=== PATIENT | female | born 1990 | race Hispanic/Latino ===

== ENCOUNTER 2019-01-24 16:42 | Outpatient (CLI) | payer OTHER ==
[2019-01-24 17:32] VITALS: BP 134/64
[2019-01-24] MEDS ORDERED: LACTATED RINGERS 1,000 ML IV SCH (18:00)
--- NOTE | 2019-01-24 20:21 | Ultrasound Report ---
PROCEDURE: US OB LIMITED TECHNIQUE: Ultrasound obstetrical transabdominal limited HISTORY: EDUARDO COMPARISONS: FINDINGS: Single live intrauterine gestation present in cephalic presentation. Cardiac activity present. And 27 bpm Amniotic fluid index is 12.1 cm IMPRESSION: Amniotic fluid index within normal limits for 0.7 cm Single live intrauterine gestation in cephalic presentation. This document is electronically signed by Rudi Romero MD., January 24 2019 08:19:00 PM ET
== END 2019-01-24 20:30 | disposition home or self-care (01) ==
LOC: TRG 16:42
PROVIDERS: ATTEND Obstetrics & Gynecology
DX: O47.1 False labor at or after 37 completed weeks of gestation (principal); Z3A.38 38 weeks gestation of pregnancy
CPT/HCPCS: 59025; 76815; 82962

== ENCOUNTER 2019-01-28 04:58 | Outpatient (CLI) | payer OTHER ==
[2019-01-28 05:42] VITALS: BP 114/63
== END 2019-01-28 06:05 | disposition home or self-care (01) ==
LOC: TRG 04:58
PROVIDERS: ATTEND Obstetrics & Gynecology
DX: O47.1 False labor at or after 37 completed weeks of gestation (principal); Z3A.39 39 weeks gestation of pregnancy
CPT/HCPCS: 59025

== ENCOUNTER 2019-01-29 17:39 | Inpatient (IN) | payer OTHER ==
--- NOTE | 2019-01-29 19:32 | Ultrasound Report ---
PROCEDURE: US OB LIMITED TECHNIQUE: Real-time limited sonographic examination was performed for evaluation of amniotic fluid volume for each fetus with image documentation (1 or more fetuses). HISTORY: rule out ROM COMPARISONS: None . FINDINGS: FETUS IUP: Single living intrauterine . Position: Cephalic . Amniotic fluid volume: Amniotic fluid index measures 11.6 cm Heart rate and rhythm: 141 BPM, Regular . IMPRESSION: Amniotic fluid index measures 11.6 cm This document is electronically signed by Ana Maria Gomez MD., January 29 2019 07:30:34 PM ET
[2019-01-29] MEDS ORDERED: MINERAL OIL PO PRN (20:24)
[2019-01-29] MEDS ORDERED: SUBLIMAZE IV PRN (20:24)
[2019-01-29] MEDS ORDERED: BRETHINE IVP PRN (20:24)
[2019-01-29] MEDS ORDERED: BRETHINE SUB-Q PRN (20:24)
[2019-01-29] MEDS ORDERED: XYLOCAINE 2% INFILTRATI ONE (20:24)
[2019-01-29] MEDS ORDERED: LACTATED RINGERS 1,000 ML IV SCH (21:00)
[2019-01-29] MEDS ORDERED: PITOCin/NS 30 UNIT/500ML 30 UNITS/500 ML BAG IV SCH (21:00)
[2019-01-29] MEDS ORDERED: PITOCin/NS 20 UNIT/1000ML DRIP 20 UNITS/1,000 ML BAG IV SCH (21:00)
[2019-01-29 21:53] LABS: Hematocrit 34.9 % (30.3-42.9); Hemoglobin 11.9 gm/dl (10.1-14.3); Mean Corpuscular HGB Conc 34 % (30-34); Mean Corpuscular Volume 95 fl (79-97); Platelet Count 342 K/mm3 (140-440); Red Blood Count 3.67 M/mm3 (3.65-5.03); Red Cell Distribution Width 14.2 % (13.2-15.2)
[2019-01-29] MEDS ORDERED: ZOFRAN IV PRN (22:07)
[2019-01-29] MEDS ORDERED: NARCAN 2 MG/2 ML IV PRN (23:27)
--- NOTE | 2019-01-29 23:27 | Anesthesia Consultation ---
Anesthesia Consult and Med Hx Date of service: 01/29/19 - Airway Anesthetic Teeth Evaluation: Good ROM Head & Neck: Adequate Mental/Hyoid Distance: Adequate Mallampati Class: Class III Intubation Access Assessment: Possibly Difficult - Pre-Operative Health Status ASA Pre-Surgery Classification: ASA3 Proposed Anesthetic Plan: Epidural, Spinal - Pulmonary Hx Asthma: No COPD: No Hx Pneumonia: No - Cardiovascular System Hx Hypertension: No - Central Nervous System Hx Seizures: No Hx Psychiatric Problems: No - Endocrine Hx Renal Disease: No Hx End Stage Renal Disease: No Hx Hypothyroidism: No Hx Hyperthyroidism: No - Hematic Hx Anemia: No Hx Sickle Cell Disease: No - Other Systems Hx Alcohol Use: No Hx Obesity: Yes (BMI 42)
[2019-01-29] MEDS ORDERED: fentaNYL-BUPIV 2 MCG/ML-0.125% 200 MCG/100 ML BAG EPIDURAL SCH (23:45)
[2019-01-30] MEDS ORDERED: AMPICILLIN/NS 2 GM/100 ML 2 GM/100 ML BAG IV SCH
--- NOTE | 2019-01-30 00:43 | History and Physical Report ---
History of Present Illness Date of examination: 01/29/19 Date of admission: 01/29/19 17:42 Chief complaint: sent from office for SROM History of present illness: Menstrual History Regularity: regular Duration: 7 LMP: 04/29/2018 LMP reliability: definite LMP character: normal test type: urine test Date: 06/28/2018 BC at conception: none Planned ? yes EDC Calculations LMP: 02/03/2019 EDC Confirmation: 02/03/2019 Gestational Age: 8 4/7 weeks Past History : 1 Term Births: 0 Premature Births: 0 Living Children: 0 Para: 0 Mult. Births: 0 Prev : 0 Prev. attempt? 0 Aborta: 0 Elect. Ab: 0 Spont. Ab: 0 Ectopics: 0 Past Medical History: Negative Past Medical History Rt Ovarian cyst noted on u/s 06/28/18 Past Surgical History: 2015- breast reduction and lift Past Medical History Surgery (Non-stablehand): 2016- breast reduction and lift Abnormal PAP: negative Family Hx: mother - HTN Maternal aunt - breast CA Social Hx: Smoker 4-5 sticks per day no ETOH or drugs Infection History Hx of STD: none HIV Risk Eval: no Hepatitis B Risk Eval: low risk Personal hx. of genital herpes: no Partner hx. of genital herpes: no Rash, Viral, or Febrile illness since last LMP? no Varicella/Chicken Pox Status: Unknown Genetic History Congenital Heart Defect: Mom: no Dad: no Lilibeth Disease: Mom: no Dad: no Thalassemia Mom: no Dad: no Neural Tube Defect Mom: no Dad: no Down's Syndrome Mom: no Dad: no Dyllan-Sachs Mom: no Dad: no Sickle Cell Disease/Trait Mom: no Dad: no Hemophilia Mom: no Dad: no Muscular Dystrophy Mom: no Dad: no Cystic Fibrosis Mom: no Dad: no Nancy Chorea Mom: no Dad: no Mental Retardation Mom: no Dad: no Fragile X Mom: no Dad: no Other Genetic/Chromosomal Disorder Mom: no Dad: no Child w/other defect Mom: no Dad: no Enviromental Exposures Xray Exposure: no Medication, drug, or alcohol use since LMP: no Chemical/Other Exposure: no Exposure to Cat Liter: no Hx of Parvovirus (Fifth Disease): no Occupational Exposure to Children: none Current Allergies (reviewed today): No known allergies Past History Past Medical History: other (see HPI) Past Surgical History: other (see HPI) 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) Family/Genetic History: other (see HPI) Social history: other (see HPI) - Obstetrical History Expected Date of Delivery: 02/03/19 Actual Gestation: 39 Week(s) 3 Day(s) : 1 Para: 0 Medications and Allergies Allergies Allergy/AdvReac Type Severity Reaction Status Date / Time No Known Allergies Allergy Unverified 01/12/19 00:13 Home Medications Medication Instructions Recorded Confirmed Last Taken Type Vitamin 1 tab PO DAILY 01/12/19 01/28/19 01/26/19 History Active Meds: Active Medications Ephedrine Sulfate (Ephedrine Sulfate) 10 mg IV Q2M PRN PRN Reason: Hypotension Last Admin: 01/29/19 23:49 Dose: 10 mg Documented by: Fentanyl (Sublimaze) 100 mcg IV Q2H PRN PRN Reason: Labor Pain Oxytocin/Sodium Chloride (Pitocin/Ns 20 Unit/1000ml Drip) 20 units in 1,000 mls @ 125 mls/hr IV DIRECT SCOTT Oxytocin/Sodium Chloride (Pitocin/Ns 30 Unit/500ml) 30 units in 500 mls @ 4 mls/hr IV TITR SCOTT; Protocol Last Admin: 01/29/19 21:58 Dose: 4 ml/hr, 4 mls/hr Documented by: Lactated Ringer's (Lactated Ringers) 1,000 mls @ 125 mls/hr IV DIRECT SCOTT Last Admin: 01/29/19 21:57 Dose: 125 mls/hr Documented by: Ampicillin Sodium (Ampicillin/Ns 2 Gm/100 Ml) 2 gm in 100 mls @ 100 mls/hr IV Q6HR SCOTT; Protocol Stop: 01/31/19 18:59 Last Admin: 01/29/19 23:10 Dose: 100 mls/hr Documented by: Fentanyl/Bupivacaine/Sodium Chlor (Fentanyl-Bupiv 2 Mcg/Ml-0.125%) 200 mcg in 100 mls @ 12 mls/hr EPIDURAL TITR SCOTT; Protocol Mineral Oil (Mineral Oil) 30 ml PO QHS PRN PRN Reason: Constipation Naloxone HCl (Narcan 2 Mg/2 Ml) 0.2 mg IV Q5M PRN PRN Reason: Respiratory sedation Ondansetron HCl (Zofran) 4 mg IV Q8H PRN PRN Reason: Nausea And Vomiting Last Admin: 01/29/19 22:52 Dose: 4 mg Documented by: Terbutaline Sulfate (Brethine) 0.25 mg SUB-Q ONCE PRN PRN Reason: Hyperstimulation/Hypertonicity Terbutaline Sulfate (Brethine) 0.25 mg IVP ONCE PRN PRN Reason: Hyperstimulation/Hypertonicity Review of Systems All systems: negative Genitourinary: leakage of fluid (since Tuesday), contractions (occasional) - Vital Signs Vital signs: Vital Signs Pulse BP 75 131/67 01/29/19 18:06 01/29/19 18:06 Temp Pulse Resp BP Pulse Ox 98.6 F 92 H 16 125/61 96 01/29/19 21:08 01/30/19 00:37 01/29/19 21:08 01/30/19 00:29 01/30/19 00:37 - Physical Exam Breasts: Cardiovascular: Regular rate, Normal S1, Normal S2 Lungs: Positive: Clear to auscultation, Normal air movement Abdomen: Positive: normal appearance, soft, normal bowel sounds. Negative: distention, tenderness Genitourinary (Female): Positive: normal external genitalia, normal perenium Vulva: both: normal Vagina: Positive: normal moisture. Negative: discharge Cervix: Negative: lesion, discharge Uterus: Positive: normal size, normal contour Adnexa: both: normal Anus/Rectum: Positive: normal perianal skin, heme negative. Negative: rectal mass, hemorrhoids Extremities: Positive: normal Deep Tendon Reflex Grade: Normal +2 - Obstetrical FHR: auscultation normal Uterine Contraction Monitor Mode: External Cervical Dilatation: 4 Cervical Effacement Percentage: 80 station: -2 Uterine Contraction Pattern: Irregular Uterine Tone Measurement Phase: Contraction Uterine Contraction Intensity: Mild Results Result Diagrams: 01/29/19 21:36 Abnormal lab results 01/29/19 Range/Units 21:36 WBC 12.9 H (4.5-11.0) K/mm3 MCH 33 H (28-32) pg All other labs normal. Assessment and Plan 28 y.o. IUP at 39w2d sent from office for SROM, +Fern and +nitrazine in office. Upon arrival to unit, pt reports she has been "wet down there" occasionally since Tuesday. Spec exam shows no pooling of fluid in vagina, but +nitrazine. SVE on admission is 4/80/-3, membranes felt around head, possibly forebag. Pt reports +for vaginal intercourse within last 24 hours. US for EDUARDO shows 11.6 cm, was 15.1 cm at [facility] on Tuesday. Patient is GDM, diet controlled. Consult with Dr. Hurtado, will continue with plan for pitocin for augmentation as it is likely high leak in amniotic bag, she is GDM, term. Pt is afebrile at this time. Abx ordered for prolonged ROM. Admission orders placed in EMR. Pt is GBS negative.
[2019-01-30] MEDS ORDERED: XYLOCAINE 2% INFILTRATI ONE (01:46)
--- NOTE | 2019-01-30 02:14 | Procedure Note ---
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 vaginal abrasion) Delivery repair: vicryl Anesthesia: epidural Delivery comments: of viable female infant over intact perineum. placed on mother's abdomen, drying and tactile stimulation produces vigorous cry. Cord clamped x2 upon cessation of pulsation and cut by FOC. Placenta delivered complete and intact, 3vc. Pitocin to IV. Fundus is firm, ML. Small vaginal abrasion and right labial abrasion repaired with interrupted stitch, hemostasis achieved. EBL 300. VSSAF. Nena care performed. Mother reports she is comfortable. Infant apgars 8/9, wt 6#2. Mother and infant remain LDR stable. - A at 1 minute: 8 at 5 minutes: 9 Gender: Female (6#2)
[2019-01-30] MEDS ORDERED: DULCOLAX PR PRN (03:27)
[2019-01-30] MEDS ORDERED: BENADRYL PO PRN (03:27)
[2019-01-30] MEDS ORDERED: ZOFRAN IV PRN (03:27)
[2019-01-30] MEDS ORDERED: PITOCin/NS 20 UNIT/1000ML DRIP 20 UNITS/1,000 ML BAG IV SCH (03:27)
[2019-01-30] MEDS ORDERED: TYLENOL PO PRN (03:27)
[2019-01-30] MEDS ORDERED: PHENERGAN PO PRN (03:27)
[2019-01-30] MEDS ORDERED: SODIUM CHLORIDE FLUSH SYRINGE 10 ML IV NR (03:27)
[2019-01-30] MEDS ORDERED: TUCKS PAD TP PRN (03:27)
[2019-01-30] MEDS ORDERED: MILK OF MAGNESIA PO PRN (03:27)
[2019-01-30] MEDS ORDERED: LANSINOH TP PRN (03:27)
[2019-01-30] MEDS: IBUPROFEN PO SCH ×4 (05:16→23:37)
[2019-01-30] MEDS: PRENATAL VITAMIN PO SCH (10:16)
[2019-01-30 15:07] LABS: Hemoglobin 11.2 gm/dl (10.1-14.3)
[2019-01-31] MEDS: IBUPROFEN PO SCH ×2 (06:38→18:52)
--- NOTE | 2019-01-31 09:07 | Discharge Summary ---
Providers - Providers Date of Admission: 01/29/19 17:42 Date of discharge: 01/31/19 Attending physician: LETY ROGEL Primary care physician: LESTER JEFFERS Hospitalization Reason for admission: SROM Condition: Good Pertinent studies: post delivery H&H Procedures: Hospital course: uncomplicated delivery and course Disposition: DC-01 TO HOME OR SELFCARE Core Measure Documentation - Palliative Care Palliative Care/ Comfort Measures: Not Applicable - Core Measures Any of the following diagnoses?: none Exam - Constitutional Vitals: Temp Pulse Resp BP Pulse Ox 98.0 F 55 L 18 123/62 96 01/31/19 07:36 01/31/19 07:36 01/31/19 07:36 01/31/19 07:36 01/31/19 07:36 General appearance: Present: no acute distress, well-nourished - EENT Eyes: Present: PERRL ENT: hearing intact, clear oral mucosa - Neck Neck: Present: supple, normal ROM - Respiratory Respiratory effort: normal Respiratory: bilateral: CTA - Cardiovascular Heart Sounds: Present: S1 & S2. Absent: rub, click - Extremities Extremities: pulses symmetrical, No edema Peripheral Pulses: within normal limits - Abdominal General gastrointestinal: Present: soft, non-tender, non-distended, normal bowel sounds Female genitourinary: Present: normal - Integumentary Integumentary: Present: clear, warm, dry - Musculoskeletal Musculoskeletal: gait normal, strength equal bilaterally - Psychiatric Psychiatric: appropriate mood/affect, intact judgment & insight - Neurologic Neurologic: CNII-XII intact, moves all extremities - Additional findings Additional findings: Fundus firm, ML, U/1. Vaginal bleeding is small, patient denies any heavy bleeding or clots. Patient reports pain is well controlled with medication. She denies any complaints or concerns. VSSAF. Reviewed recent labs with patient, she denies any dizziness or feeling faint with ambulation or position changes. Pt reports is going well, no breast complaints. She reports is doing well. Encouraged increase in water intake. Plan Activity: no restrictions Diet: regular Wound: open to air, keep clean and dry Follow up with: LESTER JEFFERS MD [Primary Care Provider] - 02/28/19 (Congratulations! Please call [phone] to schedule your appointment in 4 weeks. Call with any questions or concerns. )
[2019-01-31] MEDS: PRENATAL VITAMIN PO SCH (18:52)
[2019-02-01] MEDS: IBUPROFEN PO SCH ×2 (00:40→06:28)
[2019-02-01 10:39] VITALS: BP 113/58
== END 2019-02-01 10:40 | disposition home or self-care (01) | DRG 775 ==
LOC: TRG 17:39 → LD 17:42 → OB 01-30 03:34
PROVIDERS: ADMIT Obstetrics & Gynecology; ATTEND Obstetrics & Gynecology
PROC: 10E0XZZ Delivery of Products of Conception, External Approach (ICD-10-PCS; principal; 2019-01-30)
PROC: 0UQGXZZ Repair Vagina, External Approach (ICD-10-PCS; 2019-01-30)
PROC: 0UQMXZZ Repair Vulva, External Approach (ICD-10-PCS; 2019-01-30)
PROC: 3E0R3BZ Introduction of Anesthetic Agent into Spinal Canal, Percutaneous Approach (ICD-10-PCS; 2019-01-30)
PROC: 00HU33Z Insertion of Infusion Device into Spinal Canal, Percutaneous Approach (ICD-10-PCS; 2019-01-30)
DX: O24.420 Gestational diabetes mellitus in childbirth, diet controlled (principal); O69.89X0 Labor and delivery complicated by other cord complications, not applicable or unspecified; O71.82 Other specified trauma to perineum and vulva; Z3A.39 39 weeks gestation of pregnancy; Z37.0 Single live birth
CPT/HCPCS: 36415; 59025; 76815; 85014; 85018; 85027; 86592; 86850; 86900; 86901; G0378; A6250; J0290; J2405; J2590; J7120